=== PATIENT | male | born 1995 | race Hispanic/Latino ===

== ENCOUNTER 2016-11-09 11:53 | Emergency (ER) | payer OTHER ==
[~2016-11-09] VITALS: Ht 172.7 cm; Wt 59.0 kg
[~2016-11-09 11:53] MED LIST: MOTRIN800 MG PO
[2016-11-09 12:00] VITALS: BP 130/62
--- NOTE | 2016-11-09 12:19 | ED GENERAL ADULT ---
History of Present Illness General Chief Complaint: Hand or Wrist Injury Stated Complaint: ? FROSTBITE LFT HAND Source: patient, family Exam Limitations: no limitations Vital Signs & Intake/Output Vital Signs & Intake/Output Vital Signs Date Time Temp Pulse Resp B/P Pulse O2 O2 Flow FiO2 Ox Delivery Rate 11/09 1200 97.5 57 18 130/62 100 Room Air Allergies Coded Allergies: NO KNOWN ALLERGIES (11/09/16) Reconcile Medications Ibuprofen 400 MG TABLET 1 TAB PO BID BURN Triage Note: 21 Y/O MALE C/O "NUMBNESS" TO L 5TH FINGER; STATES HE WAS SKIING AND FELL. STATES THE GLOVE HE HAD ON FINGER WAS IN THE SNOW AND NOW ITS NUMB". NO ABNORMALITIES NOTED TO FINGER. Triage Nurses Notes Reviewed? yes Onset: Abrupt Duration: day(s): Timing: recent history HPI: 11/09/16 21-year-old male presents to the emergency department complaining of numbness and blistering to the left pinky and the distal aspect of the left index finger. The patient was snowboarding in the cold yesterday and presented today with an abrasion to the left pinky finger with an area of pallor around the abrasion. This was on the proximal phalanx of the left fifth finger. He he also complains of subjective paresthesias to the distal aspect of the left index finger. He did have blistering to the pinky finger, this subsequently Burs open and is resolving. The onset of the symptoms were abrupt, the duration was just the past 24 hours, the severity is significant as his symptoms required to come to the emergency department for care. He denies other complaints. Has no past medical history, no significant past surgical history, no known drug allergies. He takes no medications. Past History Travel History Traveled to [place] past 21 day No Medical History Any Pertinent Medical History? see below for history Neurological: NONE EENT: NONE Cardiovascular: NONE Respiratory: NONE Gastrointestinal: NONE Hepatic: NONE Renal: NONE Musculoskeletal: NONE Psychiatric: NONE Endocrine: NONE Blood Disorders: NONE Cancer(s): NONE EVENT SECURITY OFFICER/Reproductive: NONE Surgical History Surgical History: NONE Psychosocial History What is your primary language Bruneian Tobacco Use: Quit >30 days ago Family History Hx Contributory? No Review of Systems Review of Systems Constitutional: Denies: fever. EENTM: Denies: visual changes. Respiratory: Denies: short of breath. Cardiovascular: Denies: chest pain. GI: Denies: abdominal pain. Genitourinary: Reports: no symptoms. Musculoskeletal: Reports: see HPI. Skin: Reports: no symptoms. Neurological/Psychological: Reports: see HPI. Hematologic/Endocrine: Reports: no symptoms. Physical Exam Physical Exam General Appearance: well developed/nourished, alert, awake, anxious, mild distress Head: atraumatic, normal appearance Eyes: Bilateral: normal appearance, PERRL, EOMI. Ears, Nose, Throat: normal ENT inspection, hearing grossly normal Neck: normal inspection, supple, full range of motion Respiratory: normal breath sounds, chest non-tender, no respiratory distress Cardiovascular: regular rate/rhythm Peripheral Pulses: 4+ radial (R), 4+ radial (L) Back: normal range of motion Extremities: tenderness Neurologic/Psych: awake, alert, oriented x 3 Skin: pallor Comments: The patient has a small abrasion to the proximal and middle phalanx of the left fifth finger on palmar aspect of his left hand. There is free range of motion of all fingers of the left hand, there is excellent capillary refill to all fingers of the left hand. He has some subjective paresthesia to the left index finger. Flexor digitorum profundus and flexor digitorum superficialis are intact in all fingers of the left hand. I discussed the case in detail with the on-call hand surgeon Dr. Camara. The patient was placed in a sterile bacitracin dressing to the left fifth finger. He was treated with ibuprofen. He was instructed to follow-up with the hand surgeon this week, or return to the emergency department sooner if worse. Core Measures ACS in differential dx? No CVA/TIA Diagnosis: No Severe Sepsis Present: No Septic Shock Present: No Progress Differential Diagnoses I considered the following diagnoses in my evaluation of the patient: [Frostbite , frostnip, cellulitis] Plan of Care: Current Medications Sig/Anthony Start time Last Medication Dose Stop Time Status Admin Ibuprofen 600 MG ONCE ONE 11/09 1300 UNVr (Motrin) 11/09 1301 Initial ED EKG: none Departure Departure Disposition: HOME OR SELF CARE Condition: Stable Clinical Impression Primary Impression: Frostbite of left hand Referrals: PATIENT HAS NO PRIMARY CARE DR (PCP/Family) Departure Forms: Customer Survey General Discharge Information Prescriptions: Current Visit Scripts Ibuprofen 1 TAB PO BID #10 TAB Comments 11/09/16 The patient has second-degree frostbite to the left fifth finger. He did have 2 abrasions on the proximal phalanx and and the middle phalanx of the left fifth digit. He also had some subjective paresthesias to the index finger of the left hand. The abrasions were covered with bacitracin and a sterile dressing. The patient was instructed to follow-up with a hand surgeon this week. I spoke with Dr. Patel and he agreed to see the patient in follow-up. He will keep the wound covered and return to the emergency department paresthesias or if the numbness gets worse. He'll take ibuprofen for pain. Critical Care Note Critical Care Note Critical Care Time: non-applicable
[2016-11-09] MEDS ORDERED: IBUPROFEN400 M1 PO (12:59)
== END 2016-11-09 13:35 ==
LOC: ERH 11:53
DX: T33.522A Superficial frostbite of left hand, initial encounter (principal); X31.XXXA Exposure to excessive natural cold, initial encounter; Y93.23 Activity, snow (alpine) (downhill) skiing, snowboarding, sledding, tobogganing and snow tubing